=== PATIENT | female | born 1975 | race Two or more races ===

== ENCOUNTER 2020-02-05 22:50 | Emergency (ER) | payer MEDICAID, OTHER ==
[~2020-02-05] VITALS: Ht 167.6 cm; Wt 72.6 kg
[2020-02-06 01:12] VITALS: BP 156/86
== END 2020-02-06 01:31 | disposition home or self-care (01) ==
LOC: ER 22:50 → EDBD 22:50 → ER 02-06 01:31
DX: S83.92XA Sprain of unspecified site of left knee, initial encounter (principal); M62.830 Muscle spasm of back; V89.2XXA Person injured in unspecified motor-vehicle accident, traffic, initial encounter; Y93.89 Activity, other specified; Y92.488 Other paved roadways as the place of occurrence of the external cause; Y99.8 Other external cause status